=== PATIENT | female | born 1980 | race Caucasian/White ===

== ENCOUNTER 2016-11-18 09:35 | Emergency (ER) | payer BC ==
[~2016-11-18] VITALS: Ht 170.2 cm; Wt 145.6 kg
[2016-11-18 11:14] LABS: HEMATOCRIT 37.7 % (36.0-46.0); MCH 22.6 PG (29.0-34.0); MCV 72.9 FL (83-99); PLATELET COUNT 238 K/uL (156-360); RBC DIS.WIDTH-CV 19.6 % (11.8-14.6); RBC DIS.WIDTH-SD 50.1 % (39-53); RED BLOOD COUNT 5.17 M/uL (3.80-5.20); WHITE BLOOD COUNT 7.9 K/uL (4.1-10.2)
[2016-11-18 11:45] LABS: ANION GAP 7 MEQ/L (2-14); CHLORIDE 104 MEQ/L (99-109); GFR ESTIMATE (CALCULATED) > 59 mL/min/; GLUCOSE 83 mg/dL (70-99); POTASSIUM 3.7 MEQ/L (3.7-5.4); SAMPLE HEMOLYSIS CHECK 0; SAMPLE ICTERIC CHECK 0; SAMPLE LIPEMIA CHECK 0; SODIUM 133 MEQ/L (136-147); UREA NITROGEN (BUN) 12 mg/dL (9-23)
[2016-11-18 11:53] LABS: ADD MIUA? NO; BILIRUBIN NEGATIVE; BLOOD NEGATIVE; COLOR STRAW ((YELLOW)); GLUCOSE (STRIP) NEGATIVE; KETONES NEGATIVE; LEUKOCYTES NEGATIVE; NITRITE NEGATIVE; PROTEIN (STRIP) NEGATIVE; SPECIFIC GRAVITY 1.008 (1.000-1.030); UCUL ADDED? NO; UROBILINOGEN 0.2 MG/DL (0.2-1.0)
[2016-11-18 12:36] VITALS: BP 104/63
[2016-11-18 13:13] LABS: QUANTITATIVE HCG 43351.2 MIU/ML
== END 2016-11-18 12:56 | disposition home or self-care (01) ==
LOC: EME 09:35
PROVIDERS: Emergency Medicine; Nurse Practitioner Family
DX: O26.891 Other specified pregnancy related conditions, first trimester (principal); R10.30 Lower abdominal pain, unspecified; Z3A.12 12 weeks gestation of pregnancy; W18.30XA Fall on same level, unspecified, initial encounter
CPT/HCPCS: 80048; 81003; 84702; 85027; 99281; 99284

== ENCOUNTER 2017-06-05 17:33 | Inpatient (IN) | payer BC, OTHER ==
[~2017-06-05] VITALS: Ht 170.2 cm; Wt 151.8 kg
[2017-06-05] VITALS (8 sets, daily range): BP systolic 129–148; BP diastolic 61–81
[2017-06-05 18:20] LABS: BASOPHIL (%) 0.4 % (0-1); EOSINOPHIL (%) 1.1 % (0-5); EOSINOPHIL COUNT 0.1 K/uL (0-0.3); HEMATOCRIT 35.8 % (36.0-46.0); HEMOGLOBIN 11.5 G/DL (11.9-15.5); IMMATURE GRANULOCYTE (%) 0.3 % (0.0-0.7); LYMPHOCYTE (%) 18.6 % (15-42); LYMPHOCYTE COUNT 1.8 K/uL (1.0-2.8); MCH 26.6 PG (29.0-34.0); MCHC 32.1 G/DL (30.0-36.0); MCV 82.9 FL (83-99); MONOCYTE (%) 7.4 % (3-12); MONOCYTE COUNT 0.7 K/uL (0-0.8); NEUTROPHIL (%) 72.2 % (45-76); NEUTROPHIL COUNT 7.1 K/uL (1.8-6.4); PLATELET COUNT 187 K/uL (156-360); RBC DIS.WIDTH-CV 15.5 % (11.8-14.6); RBC DIS.WIDTH-SD 46.5 % (39-53); RED BLOOD COUNT 4.32 M/uL (3.80-5.20); WHITE BLOOD COUNT 9.9 K/uL (4.1-10.2)
[2017-06-06] VITALS (26 sets, daily range): BP systolic 108–173; BP diastolic 48–94
[2017-06-06 14:08] LABS: ALBUMIN 3.4 G/DL (3.2-4.8); CHLORIDE 107 MEQ/L (99-109); POTASSIUM 3.9 MEQ/L (3.7-5.4); SODIUM 135 MEQ/L (136-147); TOTAL BILIRUBIN 0.3 MG/DL (0.0-1.0)
[2017-06-06 14:13] LABS: ALKALINE PHOSPHATASE 89 IU/L (3-129); ALT (GPT) 11 IU/L (3-49); AST (GOT) 14 IU/L (2-34); CREATININE 0.5 MG/DL (0.6-1.3); GFR ESTIMATE (CALCULATED) > 59 mL/min/; GLUCOSE 95 mg/dL (70-99); TOTAL PROTEIN 6.8 G/DL (6.4-8.3); UREA NITROGEN (BUN) 7 mg/dL (9-23)
[2017-06-06 16:07] LABS: UR CREATININE CONCENTRATION 79.8 MG/DL
[2017-06-07] VITALS (22 sets, daily range): BP systolic 113–175; BP diastolic 55–85
[2017-06-08] VITALS (13 sets, daily range): BP systolic 124–157; BP diastolic 67–94
[2017-06-08 09:44] LABS: BASOPHIL (%) 0.3 % (0-1); EOSINOPHIL (%) 1.4 % (0-5); EOSINOPHIL COUNT 0.1 K/uL (0-0.3); HEMATOCRIT 32.1 % (36.0-46.0); HEMOGLOBIN 10.2 G/DL (11.9-15.5); IMMATURE GRANULOCYTE (%) 0.3 % (0.0-0.7); LYMPHOCYTE COUNT 1.3 K/uL (1.0-2.8); MCH 26.6 PG (29.0-34.0); MCHC 31.8 G/DL (30.0-36.0); MCV 83.6 FL (83-99); MONOCYTE (%) 6.8 % (3-12); MONOCYTE COUNT 0.5 K/uL (0-0.8); NEUTROPHIL (%) 74.2 % (45-76); NEUTROPHIL COUNT 5.5 K/uL (1.8-6.4); PLATELET COUNT 172 K/uL (156-360); RBC DIS.WIDTH-CV 15.9 % (11.8-14.6); RBC DIS.WIDTH-SD 47.2 % (39-53); RED BLOOD COUNT 3.84 M/uL (3.80-5.20); WHITE BLOOD COUNT 7.4 K/uL (4.1-10.2)
[2017-06-08] MEDS ORDERED: IBUPROFEN800 MG PO (16:15)
[2017-06-08] MEDS ORDERED: ENDOCET 5-3251 EACH PO (16:15)
[2017-06-09 07:39] VITALS: BP 128/63
[2017-06-09 07:47] LABS: BASOPHIL (%) 0.4 % (0-1); EOSINOPHIL (%) 0.6 % (0-5); EOSINOPHIL COUNT 0.1 K/uL (0-0.3); HEMATOCRIT 29.3 % (36.0-46.0); HEMOGLOBIN 9.5 G/DL (11.9-15.5); IMMATURE GRANULOCYTE (%) 0.6 % (0.0-0.7); LYMPHOCYTE (%) 9.8 % (15-42); LYMPHOCYTE COUNT 0.8 K/uL (1.0-2.8); MCH 27.7 PG (29.0-34.0); MCHC 32.4 G/DL (30.0-36.0); MCV 85.4 FL (83-99); MONOCYTE (%) 4.9 % (3-12); MONOCYTE COUNT 0.4 K/uL (0-0.8); NEUTROPHIL (%) 83.7 % (45-76); NEUTROPHIL COUNT 6.9 K/uL (1.8-6.4); PLATELET COUNT 149 K/uL (156-360); RBC DIS.WIDTH-CV 16.3 % (11.8-14.6); RBC DIS.WIDTH-SD 50.3 % (39-53); RED BLOOD COUNT 3.43 M/uL (3.80-5.20); WHITE BLOOD COUNT 8.2 K/uL (4.1-10.2)
[2017-06-09 14:35] VITALS: BP 139/74
[2017-06-09 19:00] VITALS: BP 120/64
[2017-06-09 22:38] VITALS: BP 139/75
[2017-06-10 03:00] VITALS: BP 133/73
[2017-06-10 06:47] VITALS: BP 140/71
[2017-06-10] MEDS ORDERED: FLUCONAZOLE100 MG PO (08:01)
[2017-06-10 10:40] VITALS: BP 119/78
== END 2017-06-10 15:19 | disposition home or self-care (01) | DRG 765 ==
LOC: LDRP-OP 17:33 → 2WEST 17:37 → LDRP-OP 23:56 → 2WEST 06-08 14:50
PROVIDERS: Nurse Practitioner; Obstetrics & Gynecology; Obstetrics & Gynecology Gynecology
DX: O48.0 Post-term pregnancy (principal); O63.0 Prolonged first stage (of labor); O61.9 Failed induction of labor, unspecified; O15.1 Eclampsia complicating labor; O16.4 Unspecified maternal hypertension, complicating childbirth; O98.82 Other maternal infectious and parasitic diseases complicating childbirth; E66.01 Morbid (severe) obesity due to excess calories; O99.824 Streptococcus B carrier state complicating childbirth; Z68.35 Body mass index [BMI] 35.0-35.9, adult; O99.214 Obesity complicating childbirth; O99.72 Diseases of the skin and subcutaneous tissue complicating childbirth; Z3A.41 41 weeks gestation of pregnancy; O62.0 Primary inadequate contractions; O09.523 Supervision of elderly multigravida, third trimester; Z68.43 Body mass index [BMI] 50.0-59.9, adult; O77.0 Labor and delivery complicated by meconium in amniotic fluid; Z37.0 Single live birth; Z91.040 Latex allergy status; Z30.2 Encounter for sterilization
CPT/HCPCS: 80053; 82570; 84156; 85025; 86850; 86900; 86901; 90686; G0378; J0690; J2274; J2405; J2540; J2590; J2765; J7120